=== PATIENT | male | born 1975 ===

== ENCOUNTER 2023-03-25 12:59 | Emergency (ER) | payer SELFPAY ==
[2023-03-25 13:10] VITALS: BP 152/99; PULSE 78; RESP 16; TEMP 36.7; O2SAT 98
--- NOTE | 2023-03-25 13:12 | ED.EYEPROB ---
HPI - Eye Problem General Chief complaint: Eye Problems Stated complaint: right eye red Time Seen by Provider: 03/25/23 13:10 Source: patient Mode of arrival: ambulatory Limitations: no limitations History of Present Illness HPI Narrative: Alejandro is a 47-year-old male patient presenting to the clinic today with complaints his right eye swelling, redness, and draining some clear fluid since . He denies any fever or chills. He does have some tenderness under the eye. Reports that vision in the right eye is cloudy. 20/50 OD, 20/50 OS, OU 20/40. Related Data Home Medications Medication Instructions Recorded Confirmed clonazepam 0.5 mg tablet 0.5 mg PO DAILY 03/25/23 03/25/23 duloxetine 60 mg capsule,delayed 60 mg PO DAILY 03/25/23 03/25/23 release Allergies Allergy/AdvReac Type Severity Reaction Status Date / Time No Known Allergies Allergy Unverified 03/25/23 13:16 Review of Systems Review of Systems: Pertinent positives per HPI. Patient denies any fever, chills, rash, headache, dizziness, cough, shortness of breath, chest pain, palpitations, nausea, vomiting, diarrhea, constipation, abdominal pain, or any urinary issues. PMFSH Comments At the time of my signature, I reviewed and agree with the nursing past medical, surgical, social, and family history. There is no relevant family history pertinent to the patient complaint. Exam Narrative: General: Well-developed, well nourished, in no apparent distress Head: Normocephalic, atraumatic Eyes: Pupils equally round and reactive to light bilaterally, EOM intact, left sclera and conjunctive clear, no discharge to the left eye, left lids normal, right sclera and conjunctive injected, green dried discharge to the inner canthus, right lid swelling, redness,herpetic like lesion around the eye with periorbital edema, and tenderness to palpation over the inferior orbit sac. Ford lamp examine performed to the right eye and show lesions to the sclera and conjunctive. Right eye pressure-10 Ears: TMs intact and clear, ear canals clear, no drainage, grossly hearing normal. Nose: Nares patent, no discharge, no inflammation, no sinus tenderness. Mouth: Oral pharynx without lesions or masses, good dentition, MMM. Neck: Supple, trachea midline, no enlargement of anterior or posterior cervical nodes, no thyroid masses or goiter palpable. Cardio: Regular rate and rhythm, s1 and s2 normal, no murmur appreciated. Resp: Clear to auscultation bilaterally, no rhonchi, rales, wheezing or rubs Course Course Emergency Course: Portions of this record may have been created with voice recognition software. Level of Care: Express Care Visit Vital Signs Vital signs: Vital Signs Temperature 36.7 C 03/25/23 13:10 Pulse Rate 78 03/25/23 13:10 Respiratory Rate 16 03/25/23 13:10 Blood Pressure 152/99 H 03/25/23 13:10 Pulse Oximetry 98 03/25/23 13:10 Oxygen Delivery Room Air 03/25/23 13:10 Temperature 36.7 C 03/25/23 13:10 Pulse Rate 78 03/25/23 13:10 Respiratory Rate 16 03/25/23 13:10 Blood Pressure 152/99 H 03/25/23 13:10 Pulse Oximetry 98 03/25/23 13:10 Oxygen Delivery Room Air 03/25/23 13:10 Vital signs reviewed Procedures Other Procedure Procedure 1: Other Procedure: Two drops of topical tetracaine anesthetic was instilled with good anesthesia into the right eye. Fluorescein stain of the right eye was performed. Multiple lesions outlined with fluorescein stain in to the sclera and cornea. No FB or ulcer noted. Upper lid was everted and no FB or lesions were noted. No Víctor sign. Normal saline irrigation eye solution was performed and the patient tolerated the procedure well, no adverse reaction or complications. Noted intraocular pressure readings. Pressure of 10 in the right eye. MDM - Eye Problem MDM Narrative Medical decision making narrative: At the time of visit patient is resting comfortably on the
[2023-03-25 13:16] VITALS: BP 152/99; PULSE 78; RESP 16; TEMP 36.7; O2SAT 98
[2023-03-25] MEDS: FLUORESCEIN SOD 1 MG/STRIP RIGHT EYE (13:26)
[2023-03-25] MEDS: TETRACAINE HCL 0.5% OPHTH SOLN 4 ML BTL RIGHT EYE (13:26)
[2023-03-25] MEDS: DACRIOSE EYE IRRIGATION 118 ML BOTTLE RIGHT EYE (13:26)
== END 2023-03-25 14:56 | disposition short-term general hospital (02) ==
LOC: EXPCOLL 13:03
PROVIDERS: Emergency Provider Nurse Practitioner Family
DX: B00.52 Herpesviral keratitis (principal); B00.50 Herpesviral ocular disease, unspecified; H05.221 Edema of right orbit; F41.9 Anxiety disorder, unspecified
CPT/HCPCS: 99213; A9270; G0463

== ENCOUNTER 2024-06-22 03:30 | Emergency (ER) | payer SELFPAY ==
--- NOTE | ~2024-06-22 | XR_ITS ---
EXAMINATION: XR hand RT min 3V DATE: 06/22/2024 04:56 INDICATION: Glass injury to the right fifth digit. TECHNIQUE: Posteroanterior, oblique and lateral views of the right hand were obtained. COMPARISON: None. FINDINGS: Alignment is normal. No fracture. Joint spaces are normal. Laceration along the ulnar side of the rig ht fifth middle phalanx. Soft tissues are otherwise unremarkable. No radiopaque foreign bodies. IMPRESSION: 1. No osseous abnormality or radiopaque foreign body. Reviewed, dictated and finalized at location A.
--- NOTE | ~2024-06-22 | XR_ITS ---
EXAMINATION: XR hand LT min 3V DATE: 06/22/2024 04:56 INDICATION: Glass injury TECHNIQUE: Posteroanterior, oblique and lateral views of the left hand were obtained. COMPARISON: None. FINDINGS: Alignment is normal. No fracture. Joint spaces are normal. Soft tissues are unremarkable. No radiopaq ue foreign bodies. IMPRESSION: 1. Normal left hand radiographs. Reviewed, dictated and finalized at location A.
--- OUTSIDE RECORDS SUMMARY | 2024-06-22 03:32 | XMS_ITS | Encounter Summary ---
Author Organization [facility] Health Address [address] [place] [address] Care Team Providers Care Negative Notcher Name Role Phone Provider, No Pcp Primary Care Provider Unavailab le Encounter Details Date Type Department Care Team (Late st Contact Info) Description 03/25/2023 Ophth Exam [facility] - Ophthalmology [address] [place] [address] Dean Ramirez MD [address] [facility] [place] [id number] Social History Tobacco Use Types Packs/Day Years Used Date Smoking Tobacco: Every Day Cigarettes Smokeless Tobacco: Current Sex and Gender Information Value Date Recorded Sex Assigned at Not on file 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
--- OUTSIDE RECORDS SUMMARY | 2024-06-22 03:32 | XMS_ITS | Clinical Summary ---
Author Organization [facility] [employer] Address [address] [place] [employer] [place] [address] Care Team Providers Care Motorcycle Builder Name Role Phone Provider, No Pcp Primary Care Provider Unavailab le Source Comments [facility],non-owned Affiliates and Associated Physician Practices is amultiple site organization consisting of ambulatory clinics and hospital sitesin [place], [place], [place] and [place]. This disclosure is being madepursuant to the Care Everywhere program and may not contain all information available regarding this patient. Last updated 17.[facility] [employer] Allergies No known active allergies Medications * Be aware that medications may not be up to date on this document. Alwaysverify current medications with the patient. ganciclovir (Zirgan) 0.15 % ophthalmic gel Instill 1 (one) drop into right eye 5 times daily while awake 5 g 1 03/25/2023 Active erythromycin (Romycin) 5 MG/GM ophthalmic ointment Instill into right eye 4 times daily 3.5 g 2 03/27/2023 Active moxifloxacin (Vigamox) 0.5 % ophthalmic solution Instill 1 (one) drop into right eye 4 times daily 3 mL 1 03/27/2023 Active Cholecalciferol (vitamin D3) 1.25 MG (50996 UT) capsule TAKE 2 CAPSULES BY MOUTH A WEEK 05/09/2022 Active clonazePAM (KlonoPIN) 0.5 MG tablet TAKE 1 TABLET BY MOUTH TWICE DAILY AND 1 NEEDED 03/15/2023 Active DULoxetine (Cymbalta) 60 MG capsule TAKE 1 CAPSULE BY MOUTH ONCE DAILY IN THE MORNING 03/23/2023 Active Active Problems No known active problems Social History Tobacco Use Types Packs/Day Years Used Date Smoking Tobacco: Every Day Cigarettes Smokeless Tobacco: Current Tobacco Cessation:Ready to Q uit: No; Counseling Given: Not Answered Sex and Gender Information Value Date Recorded Sex Assigned at Not on file 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 Gender Identity Not on file Sexual Orientation Not on file Last Filed Vital Signs Vital Sign Reading Time Taken Comments Blood Pressure 149/98 03/25/2023 4:45 PM MAILROOM MESSENGER Pulse 83 03/25/2023 3:23 PM MAILROOM MESSENGER Temperature 37.1 C (98.7 F) 03/25/2023 3:23 PM MAILROOM MESSENGER Respiratory Rate 18 03/25/2023 3:23 PM MAILROOM MESSENGER Oxygen Saturation 97% 03/25/2023 4:45 PM MAILROOM MESSENGER Inhaled Oxygen Concentration - - Weight 74.8 kg (165 lb) 03/25/2023 3:23 PM MAILROOM MESSENGER Height 172.7 cm (5' 8 ) 03/25/2023 3:23 PM MAILROOM MESSENGER Body Mass Index 25.09 03/25/2023 3:23 PM MAILROOM MESSENGER Plan of Treatment Health Maintenance Due Date Last Done Comments COLOGUARD (AGES 45-75) - COL ON CA SCREENING 1976 COLON MONITORING 1976 COLONOSCOPY - COLON CA SCREENING 1976 CT COLONOGRAPHY - COLON CA SCREENING 1976 Colorectal Cancer Screening 1976 FIT - COLON CA SCREENING 1976 FLEX SIG - COLON CA SCREENING 1976 LIPID TESTING 1976 HIV SCREENING 1991 HEPATITIS C SCREENING 04/07/1994 DTAP/TDAP/TD VACCINES (1 - Tdap) 1995 HEPATITIS B VACCINE (1 of 3 - 19+ 3-dose series) 1995 PNEUMOCOCCAL VACCINE (1 of 2 - PCV) 1995 SCREENING FOR DIABETES 03/27/2023 COVID-19 VACCINE (1 - 2023-2 5 season) 2023 DEPRESSION SCREENING 02/14/2024 INFLUENZA VACCINE (Season Ended) 2024 ZOSTER VACCINE (1 of 2) 2026 HIB VACCINE Aged Out No longer eligi ble based on patient's age to complete this topic HPV VACCINE Aged Out No longer eligi ble based on patient's age to complete this topic MENINGOCOCCAL (Group B) VACC INE SHARED DECISION-MAKING Aged Out No longer eligibl e based on patient's age to complete this topic MENINGOCOCCAL GROUPS A/C/Y/W VACCINE Aged Out No longer eligible b ased on patient's age to complete this topic Care Teams Motorcycle Builder Relationship Specialty Start Date End Date Provider, No Pcp PCP - General 03/25/23
[2024-06-22 03:35] VITALS: BP 144/100; PULSE 19; RESP 20; TEMP 36.2; O2SAT 100
--- OUTSIDE RECORDS SUMMARY | 2024-06-22 04:23 | XMS_ITS | Encounter Summary ---
Author Organization [facility] Health Address [address] [place] [address] Care Team Providers Care Ham Sawyer Name Role Phone Provider, No Pcp Primary Care Provider Unavailab le Encounter Details Date Type Department Care Team (Late st Contact Info) Description 03/25/2023 Ophth Exam [facility] - Ophthalmology [address] [place] [address] Dean Ramirez MD [address] [facility] [place] [phone] Social History Tobacco Use Types Packs/Day Years Used Date Smoking Tobacco: Every Day Cigarettes Smokeless Tobacco: Current Sex and Gender Information Value Date Recorded Sex Assigned at Not on file 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
--- OUTSIDE RECORDS SUMMARY | 2024-06-22 04:23 | XMS_ITS | Clinical Summary ---
Author Organization [facility] Address [address] [place] [address] Care Team Providers Care Studio Owner Name Role Phone Provider, No Pcp Primary Care Provider Unavailab le Source Comments [facility],non-owned Affiliates and Associated Physician Practices is amultiple site organization consisting of ambulatory clinics and hospital sitesin [place], [place], [place] and [place]. This disclosure is being madepursuant to the Care Everywhere program and may not contain all information available regarding this patient. 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 Gender Identity Not on file Sexual Orientation Not on file Last Filed Vital Signs Vital Sign Reading Time Taken Comments Blood Pressure 149/98 03/25/2023 4:45 PM STUD SHEEP FARMER Pulse 83 03/25/2023 3:23 PM STUD SHEEP FARMER Temperature 37.1 C (98.7 F) 03/25/2023 3:23 PM STUD SHEEP FARMER Respiratory Rate 18 03/25/2023 3:23 PM STUD SHEEP FARMER Oxygen Saturation 97% 03/25/2023 4:45 PM STUD SHEEP FARMER Inhaled Oxygen Concentration - - Weight 74.8 kg (165 lb) 03/25/2023 3:23 PM STUD SHEEP FARMER Height 172.7 cm (5' 8 ) 03/25/2023 3:23 PM STUD SHEEP FARMER Body Mass Index 25.09 03/25/2023 3:23 PM STUD SHEEP FARMER Plan of Treatment Health Maintenance Due Date [...] age to complete this topic Care Teams Studio Owner Relationship Specialty Start Date End Date Provider, No Pcp PCP - General 03/25/23
--- NOTE | 2024-06-22 04:36 | ED.GENADULT ---
HPI - General Adult General Chief complaint: Wound/Laceration Stated complaint: right pinky lac Time Seen by Provider: 06/22/24 03:38 History of Present Illness HPI narrative: This is a 49-year-old male presenting ED with a finger laceration. Patient was washing dishes when cut his pinky on a piece of broken glass. No other injuries. No loss of weakness or loss of sensation to the finger. Patient is intoxicated. Related Data Home Medications ?Medication ?Instructions ?Recorded ?Confirmed ?Last Taken ?Type clonazepam 0.5 mg tablet 0.5 mg PO DAILY 03/25/23 03/25/23 Unknown History duloxetine 60 mg capsule,delayed 60 mg PO DAILY 03/25/23 03/25/23 Unknown History release Allergies Allergy/AdvReac Type Severity Reaction Status Date / Time No Known Allergies Allergy Unverified 03/25/23 13:16 Exam Narrative: APPEARANCE: No apparent distress. Head: atraumatic. EYES: EOMI, NOSE: Atraumatic NECK: Trachea midline RESPIRATORY: No increased rate of breathing CARDIOVASCULAR: RRR, ABDOMINAL: Non-distended MUSCULOSKELETAl: 2.5 cm U shaped laceration to the lateral 5th digit of the right hand. Inspection revealed no involvement the deeper tissues or the joint capsule. No foreign bodies noted. NEURO: Alert. Moving 4/4 extremities SKIN:: Warm, dry. Normal color PSYCHIATRIC: Normal affect Course Vital Signs Vital signs: Vital Signs Temperature 97.1 F L 06/22/24 03:35 Pulse Rate 19 L 06/22/24 03:35 Respiratory Rate 20 06/22/24 03:35 Blood Pressure 144/100 H 06/22/24 03:35 Pulse Oximetry 100 06/22/24 03:35 Oxygen Delivery Room Air 06/22/24 03:35 Temperature 97.1 F L 06/22/24 03:35 Pulse Rate 19 L 06/22/24 03:35 Respiratory Rate 20 06/22/24 03:35 Blood Pressure 144/100 H 06/22/24 03:35 Pulse Oximetry 100 06/22/24 03:35 Oxygen Delivery Room Air 06/22/24 03:35 Procedures Laceration Laceration 1: Date: 06/22/24 Site: hand Side (If applicable): right Size (cm): 2.5 Description: flap Depth: simple, single layer Local Anesthetic: bupivacaine 0.25% Amount of anesthesia used (mL): 6 Pre-repair: wound explored, irrigated extensively and deep structures intact ====== Skin Level ====== Size (cm): 4-0 Number of sutures: 7 Technique: simple, interrupted ====== Subcutaneous Layer ====== ====== Muscle Layer ====== ====== Tendon Layer ====== Medical Decision Making MDM Narrative Medical decision making narrative: -Course: 49-year-old male presenting with a finger laceration. No radiopaque foreign bodies noted on x-ray. Wound was explored with no involvement of deeper structures or any foreign bodies noted. Wound was irrigated extensively and repaired with sutures. Patient given dose of Ancef discharged Keflex. Sutures need removal in 14 days. Given strict return precautions for infection. Vital Signs Vital Signs: Vital Signs Temperature 97.1 F L 06/22/24 03:35 Pulse Rate 19 L 06/22/24 03:35 Respiratory Rate 20 06/22/24 03:35 Blood Pressure 144/100 H 06/22/24 03:35 Pulse Oximetry 100 06/22/24 03:35 Oxygen Delivery Room Air 06/22/24 03:35 Temperature 97.1 F L 06/22/24 03:35 Pulse Rate 19 L 06/22/24 03:35 Respiratory Rate 20 06/22/24 03:35 Blood Pressure 144/100 H 06/22/24 03:35 Pulse Oximetry 100 06/22/24 03:35 Oxygen Delivery Room Air 06/22/24 03:35 Discharge Plan Discharge Clinical Impression: Laceration Patient Disposition: Home Condition: Stable Instructions: Antibiotic Form, Care For Your Stitches (ED) Additional Instructions: You were seen in the emergency department for a laceration. Sutures need to be removed in 14 days. Please do not soak the wound in water. You can wash it with clean soap and water as needed and keep it dry. You can use antibiotic ointment or Vaseline to keep it moist but please allow to breathe for 1-2 hours per day. If you develop signs of infection such as redness swelling increased pain or purulent discharge please return to emergency department immediately. Use Motrin Tylenol for pain. Please complete a course of Keflex. Patient Language: Portuguese Prescriptions: New acetaminophen 500 mg tablet 1,000 mg PO TID PRN (Reason: kj) 7 Days Qty: 42 0RF ibuprofen 800 mg tablet 800 mg PO TID PRN (Reason: pain) 7 Days Qty: 21 0RF cephalexin 500 mg capsule 500 mg PO Q12H Qty: 14 0RF No Action clonazepam 0.5 mg tablet 0.5 mg PO DAILY duloxetine 60 mg capsule,delayed release(DR/EC) 60 mg PO DAILY Follow-up/Referrals: PHYSICIAN,DIRECTOR NURSES' REGISTRY [Primary Care Provider] -
[2024-06-22] MEDS: BUPivacaine HCL 0.25% PF 10 ML VIAL INFILTRATE (04:46)
[2024-06-22] MEDS: TETANUS,DIPHTHERIA,AC PERTUSSIS ADULT (0.5 ML) BOOSTRIX IM (04:59)
[2024-06-22] MEDS: ceFAZolin SODIUM 1 GM VIAL IM (05:00)
[2024-06-22] MEDS: WATER, STERILE FOR INJECTION 10 ML VIAL XX (05:00)
== END 2024-06-22 05:43 | disposition home or self-care (01) ==
PROVIDERS: Emergency Provider Emergency Medicine
DX: S61.216A Laceration without foreign body of right little finger without damage to nail, initial encounter (principal); Z23 Encounter for immunization; W25.XXXA Contact with sharp glass, initial encounter; Y93.G1 Activity, food preparation and clean up
CPT/HCPCS: 12002; 73130; 90471; 90715; 99284; J0690